=== PATIENT | male | born 1970 | race Caucasian/White ===

== ENCOUNTER 2019-08-10 15:18 | Outpatient (CLI) | payer BC ==
--- NOTE | 2019-08-10 16:24 | MRI ---
MR RIGHT SHOULDER WITHOUT CONTRAST: 08/10/19 HISTORY: Impingement syndrome. Pain for four years with progressive worsening. COMPARISON: None. FINDINGS: BICEPS TENDON: High grade interstitial tearing and tendinosis intra-articular tendon. No significant subluxation. LABRUM: Intrasubstance tear throughout the superior labrum extending to the anterior and anterior inferior la tray. ROTATOR CUFF: There is a moderate bursal surface ------- as well as 20 to 30% tearing throughout the supraspinatus and infraspinatus tendons. No full thickness rupture. The articular surface tendon is intact. MUSCLES: The muscle signal and bulk is normal. SOFT TISSUES: There is extensive synovitis in axillary pouch. Loss of normal subcoracoid fat with rotator interval synovitis. The axillary pouch is somewhat thickened and edematous. BONES: Type I acromion with moderate hypertrophic osteophyte formation as well as mild lateral downsloping n arrowing of the subacromial space. Normal glenoid version. There is osteophyte formation of the anterior, inferior, and posterior glenoid. IMPRESSION: 1. 20 to 30% bursal surface partial tearing supraspinatus and infraspinatus tendons with subjace nt bursal surface fraying. No full thickness perforation. 2. Mild lateral downsloping of type I acromion. 3. Extensive synovitis of the rotator interval as well as axillary pouch with thickened and rosaura atous inferior glenohumeral ligament can be seen with capsulitis in the correct clinical setting. 4. Interstitial tearing of the intra-articular biceps tendon with extensive tendinosis. 5. Intrasubstance tear throughout the superior labrum as well as the anterior and anterior infer ior labrum. 1. POS: [facility]PC
== END 2019-08-10 15:19 | disposition home or self-care (01) ==
LOC: TBSIIMAG 15:18
PROVIDERS: ATTEND Orthopaedic Surgery
DX: M75.41 Impingement syndrome of right shoulder (principal); M75.111 Incomplete rotator cuff tear or rupture of right shoulder, not specified as traumatic; M65.811 Other synovitis and tenosynovitis, right shoulder; S46.211A Strain of muscle, fascia and tendon of other parts of biceps, right arm, initial encounter; M75.81 Other shoulder lesions, right shoulder; S43.431A Superior glenoid labrum lesion of right shoulder, initial encounter